=== PATIENT | male | born 1935 | race Caucasian/White ===

== ENCOUNTER → 2016-10-10 | Outpatient (CLI) | payer MEDICARE, OTHER ==
[2016-10-10 12:25] LABS: Appearance,Urine Clear (Clear); Bilirubin,Urine Negative (Negative); Glucose,Urine (UA) Negative (Negative); Ketones,Urine Negative (Negative); Leukocyte Esterase,Urine Negative (Negative); Nitrite,Urine Negative (Negative); Protein,Urine Trace (Negative); Specific Gravity,Urine 1.007 (1.001-1.035); UA Billing (MACRO vs. MICRO) CHEM; Urobilinogen,Urine <2.0 mg/dL (<2.0)
[2016-10-10 12:36] LABS: Aty Lym Flag Moderate; CH 31.4; CHCM 33.6; HCT 45.8 % (39.0-53.0); HDW 2.64; HGB 15.2 gm/dL (13.0-17.5); MCH 31.2 pg (25.0-35.0); MCHC 33.2 g/dL (31.0-37.0); MCV 93.9 fL (80.0-100.0); Mean Platelet Volume 7.8; RBC 4.88 m/uL (4.30-5.90); RDW 13.6 % (11.5-15.5); WBC 5.7 k/uL (3.8-10.6); WBC (Perox) 5.92
[2016-10-10 12:40] LABS: Magnesium 1.8 mg/dL (1.6-2.3); Phosphorous 3.7 mg/dL (2.5-4.5); Uric Acid 8.3 mg/dL (3.5-8.5)
[2016-10-10 12:49] LABS: % Iron Saturation 24.7 % (20-50)
[2016-10-10 14:20] LABS: Add Differential Manual Differential
[2016-10-10 14:24] LABS: Nucleated Red Blood Cells 0 /100 WBC (0-0); Total Cells Counted 100
== END | disposition home or self-care (01) ==
LOC: LABWHC1 11:39
PROVIDERS: ATTEND Internal Medicine Nephrology
DX: N18.3 Chronic kidney disease, stage 3 (moderate) (principal); D64.9 Anemia, unspecified; E55.9 Vitamin D deficiency, unspecified; E21.3 Hyperparathyroidism, unspecified
CPT/HCPCS: 36415; 81003; 82728; 83540; 83550; 83735; 83970; 84100; 84550; 85025

== ENCOUNTER → 2017-03-19 | Outpatient (CLI) | payer MEDICARE, OTHER ==
[2017-03-19 09:12] LABS: Basophils # (A) 0.1 k/uL (0-0.2); Basophils % (A) 1 %; CH 32.1; CHCM 34.5; Eosinophils # (A) 0.2 k/uL (0-0.7); Eosinophils % (A) 2 %; HCT 44.8 % (39.0-53.0); HDW 2.56; HGB 14.6 gm/dL (13.0-17.5); Luc % (Auto) 4; Lymphocytes # (A) 1.4 k/uL (1.0-4.8); Lymphocytes % (A) 19 %; MCH 30.5 pg (25.0-35.0); MCHC 32.7 g/dL (31.0-37.0); MCV 93.5 fL (80.0-100.0); Mean Platelet Volume 7.9; Monocytes # (A) 0.4 k/uL (0-1.0); Monocytes % (A) 6 %; Neutrophils # (A) 5.3 k/uL (1.3-7.7); Neutrophils % (A) 69 %; RBC 4.79 m/uL (4.30-5.90); WBC 7.6 k/uL (3.8-10.6); WBC (Perox) 8.17
[2017-03-19 09:14] LABS: Amorphous Sediment,Urine Rare /hpf; Appearance,Urine Clear (Clear); Bacteria,Urine Rare /hpf; Bilirubin,Urine Negative (Negative); Glucose,Urine (UA) Negative (Negative); Ketones,Urine Negative (Negative); Leukocyte Esterase,Urine Small (Negative); Nitrite,Urine Negative (Negative); PH, Urine 5.5 (5.0-8.0); Particle Count 578; Protein,Urine 1+ (Negative); RBC,Urine 4 /hpf (0-5); Specific Gravity,Urine 1.012 (1.001-1.035); UA Billing (MACRO vs. MICRO) MICRO; Urobilinogen,Urine <2.0 mg/dL (<2.0); WBC,Urine 10 /hpf (0-5)
[2017-03-19 11:22] LABS: Anion Gap 14 mmol/L; Blood Urea Nitrogen 29 mg/dL (9-20); Calcium 9.1 mg/dL (8.4-10.2); Carbon Dioxide 25 mmol/L (22-30); Chloride 102 mmol/L (98-107); Glucose 184 mg/dL (74-99); Iron 125 ug/dL (49-181); Magnesium 1.8 mg/dL (1.6-2.3); Non-African American GFR(MDRD) 53 (>60 ml/min/1.73 sqM); Phosphorous 3.6 mg/dL (2.5-4.5); Potassium 4.1 mmol/L (3.5-5.1); Sodium 141 mmol/L (137-145); Uric Acid 8.1 mg/dL (3.5-8.5)
[2017-03-19 11:32] LABS: % Iron Saturation 48.1 % (20-50); Total Iron Binding Capacity 260 ug/dL (261-462)
== END | disposition home or self-care (01) ==
LOC: LABWHC1 08:16
PROVIDERS: ATTEND Nurse Practitioner Family
DX: D64.9 Anemia, unspecified (principal); E55.9 Vitamin D deficiency, unspecified; N18.3 Chronic kidney disease, stage 3 (moderate); N25.81 Secondary hyperparathyroidism of renal origin; N39.0 Urinary tract infection, site not specified; M10.9 Gout, unspecified
CPT/HCPCS: 36415; 80048; 81001; 82306; 82728; 83540; 83550; 83735; 83970; 84100; 84550; 85025

== ENCOUNTER → 2018-03-29 | Outpatient (CLI) | payer MEDICARE, OTHER ==
[2018-03-29 15:39] LABS: Calcium 8.9 mg/dL (8.4-10.2)
== END | disposition home or self-care (01) ==
LOC: LABWHC1 14:54
PROVIDERS: ATTEND Internal Medicine Nephrology
DX: N18.3 Chronic kidney disease, stage 3 (moderate) (principal)
CPT/HCPCS: 36415; 80048

== ENCOUNTER → 2018-05-23 | Outpatient (CLI) | payer MEDICARE, OTHER ==
--- NOTE | 2018-05-23 23:55 | MR ---
EXAMINATION TYPE: MR knee RT wo con DATE OF EXAM: 05/23/2018 COMPARISON: None HISTORY: Right knee pain and swelling for several months, no known trauma TECHNIQUE: Multiplanar, multisequence imaging of the right knee is performed without IV contrast. FINDINGS: The anterior and posterior cruciate ligaments are intact. There is mild knee joint effusion. There is 4.5 x 2 cm popliteal cyst. There is horizontal tear of the posterior horn medial meniscus extending to the inferior surface. The re is mild degenerative thinning of the anterior horn of the lateral meniscus. The medial collateral ligament is intact. There is some thinning and mild increased signal in the lateral collateral ligame nt. There is a 2 cm area of edema in the subchondral medial tibial condyle. There is probably a 1 mm depressed fracture of the lateral tibial condyle. There is subcutaneous edema around the knee joint. IMPRESSION: There is a moderate 2 cml area of bone bruise in the lateral tibial condyle. There is subtle deformit y of the articular surface of the lateral tibial condyle suggestive of a nondisplaced plateau fractur e. Partial tear of the lateral collateral ligament. Knee joint effusion with popliteal cyst. There is tear of the posterior horn of the medial meniscus and anterior horn of the lateral meniscus.
== END | disposition home or self-care (01) ==
LOC: RADMRIMAIN 20:36
PROVIDERS: ATTEND Family Medicine
DX: S83.281A Other tear of lateral meniscus, current injury, right knee, initial encounter (principal); S83.241A Other tear of medial meniscus, current injury, right knee, initial encounter; S80.11XA Contusion of right lower leg, initial encounter; S83.421A Sprain of lateral collateral ligament of right knee, initial encounter; M71.21 Synovial cyst of popliteal space [Baker], right knee

== ENCOUNTER → 2018-12-24 | Outpatient (CLI) | payer MEDICARE, OTHER ==
[2018-12-24 16:25] LABS: Albumin 4.4 g/dL (3.80-4.90); Calcium 9.2 mg/dL (8.7-10.3); Globulin 2.2 g/dL (1.6-3.3); LDL Cholesterol,Calculated 85.6 mg/dL (0.0-131.0); Total Bilirubin 0.3 mg/dL (0.2-1.2); Total Protein 6.6 g/dL (6.2-8.2); VLDL Calculation 57.4 mg/dL (5.00-40.00)
== END ==
LOC: LABWHC1 08:35
PROVIDERS: ATTEND Internal Medicine
DX: E11.65 Type 2 diabetes mellitus with hyperglycemia (principal)
CPT/HCPCS: 36415; 80053; 80061; 82043; 82570; 83036

== ENCOUNTER 2019-02-01 12:47 | Emergency (ER) | payer MEDICARE, OTHER ==
[2019-02-01 12:50] VITALS: TEMP 98.3
[2019-02-01] MEDS ORDERED: SODIUM CHLORIDE 0.9% 500 ML 500 ML IV STA (13:15)
[2019-02-01] MEDS ORDERED: IPRATROPIUM-ALBUTEROL 3 ML NEB INHALATION STA (13:16)
--- NOTE | 2019-02-01 13:49 | ED ---
General Adult HPI - General Source: patient, RN notes reviewed Mode of arrival: ambulatory Limitations: no limitations <Duglas Wade - Last Filed: 02/01/19 15:49> <Juan Duffy - Last Filed: 02/02/19 11:35> - General Chief complaint: Upper Respiratory Infection Stated complaint: COLD SYMPTOMS, CONGESTION - History of Present Illness Initial comments: 83-year-old male with a past medical history of hyperlipidemia, hypertension, arthritis, diabetes mellitus presents to the emergency department for a chief complaint of cough and congestion 3 days. Patient states he has had a dry cough for the past several days that did turning to congestion. Patient states it is making him tired and his blood sugar higher. Patient denies fevers or chills. Denies shortness of breath or chest pain. Patient denies productive cough. Patient denies history of COPD however does admit to a [id number] smoking history. Patient is no longer a current smoker.Patient has no other complaints at this time including shortness of breath, chest pain, abdominal pain, nausea or vomiting, headache, or visual changes. (Duglas Wade) - Related Data Home Medications Medication Instructions Recorded Confirmed Clopidogrel [Plavix] 75 mg PO DAILY 06/09/14 10/26/15 Ergocalciferol [Vitamin D2 50,000 unit PO Q7D 06/09/14 10/26/15 (DRISDOL)] Gluc HCl/Joel/Mv/Min Aa/Hb 162 1 each PO BID 06/09/14 10/26/15 [Glucosamine-Chondroitin Caplet] Insulin Lispro Protamin/Lispro 78 unit SQ BID 06/09/14 10/26/15 [humaLOG Mix 75-25 Kwikpen] Lisinopril [Zestril] 20 mg PO BID 06/09/14 10/26/15 Magnesium Oxide [Mag-Ox] 500 mg PO DAILY 06/09/14 10/26/15 Multivitamin [Men's Multi-Vitamin] 1 each PO DAILY 06/09/14 10/26/15 [place]-3 Acid Ethyl Esters [Lovaza] 2 gm PO BID 06/09/14 10/26/15 Simvastatin [Zocor] 40 mg PO HS 06/09/14 10/26/15 hydrALAZINE HCL [Apresoline] 100 mg PO TID 06/09/14 10/26/15 sitaGLIPtin [Januvia] 50 mg PO DAILY 06/09/14 10/26/15 Previous Rx's Medication Instructions Recorded Verapamil Sr [Isoptin Sr] 180 mg PO DAILY #30 tablet.er 06/12/14 Sulfamethox-Tmp 800-160Mg [Bactrim 1 each PO Q12HR #14 tab 10/26/15 DS 800-160 mg] Albuterol Inhaler [Ventolin Hfa 1 - 2 puff INHALATION Q6HR PRN #1 02/01/19 Inhaler] inhaler Azithromycin [Zithromax Z-pack] 250 mg PO DIRECTED #6 tab 02/01/19 Erythromycin Ophth Oint [Romycin 1 applic BOTH EYES QID 7 Days gm 02/01/19 Ophth Oint] predniSONE 50 mg PO DAILY #5 tablet 02/01/19 Allergies Allergy/AdvReac Type Severity Reaction Status Date / Time insulin glargine Allergy Unknown Verified 02/01/19 12:51 [From Lantus U-100 Insulin] Latex, Natural Rubber Allergy Unknown Verified 02/01/19 12:51 Review of Systems ROS Other: All systems not noted in ROS Statement are negative. <Duglas Wade P - Last Filed: 02/01/19 15:49> ROS Other: All systems not noted in ROS Statement are negative. <Juan Duffy - Last Filed: 02/02/19 11:35> ROS Statement: Those systems with pertinent positive or pertinent negative responses have been documented in the HPI. Past Medical History Past Medical History: Cancer, Diabetes Mellitus, Hearing Disorder / Deafness, Hyperlipidemia, Hypertension, Prostate Disorder Additional Past Medical History / Comment(s): DOUBLE VISION 1 YEAR AGO- RESOLVED , ARTHRITIS History of Any Multi-Drug Resistant Organisms: None Reported Past Surgical History: Prostate Surgery, Tonsillectomy Additional Past Surgical History / Comment(s): prostate, skin ca Past Anesthesia/Blood Transfusion Reactions: No Reported Reaction Past Psychological History: No Psychological Hx Reported Smoking Status: Former smoker Past Alcohol Use History: None Reported Past Drug Use History: None Reported - Past Family History Father Additional Family Medical History / Comment(s): IN HIS 80'S HEART FAILURE Mother Additional Family Medical History / Comment(s): IN HER EARLY 80'S- UNK CAUSE <Duglas Wade P - Last Filed: 02/01/19 15:49> General Exam Limitations: no limitations General appearance: alert, in no apparent distress Head exam: Present: atraumatic, normocephalic, normal inspection Eye exam: Present: normal appearance, PERRL, EOMI. Absent: scleral icterus, c onjunctival injection, periorbital swelling ENT exam: Present: normal exam, normal oropharynx, mucous membranes moist, TM's normal bilaterally, normal external ear exam Neck exam: Present: normal inspection, full ROM. Absent: tenderness, meningismus, lymphadenopathy Respiratory exam: Present: normal lung sounds bilaterally. Absent: respiratory distress, wheezes, rales, rhonchi, stridor Cardiovascular Exam: Present: regular rate, normal rhythm, normal heart sounds. Absent: systolic murmur, diastolic murmur, rubs, gallop, clicks GI/Abdominal exam: Present: soft, normal bowel sounds. Absent: distended, tenderness, guarding, rebound, rigid Neurological exam: Present: alert, oriented X3, CN II-XII intact Psychiatric exam: Present: normal affect, normal mood <Duglas Wade P - Last Filed: 02/01/19 15:49> Course Vital Signs 02/01/19 02/01/19 02/01/19 12:48 13:41 13:51 Temperature 98.3 F Pulse Rate 72 72 75 Respiratory 18 Rate Blood Pressure 156/66 O2 Sat by Pulse 97 Oximetry 02/01/19 02/01/19 02/01/19 14:34 15:00 16:35 Temperature 98.3 F Pulse Rate 68 67 61 Respiratory 17 18 18 Rate Blood Pressure 169/76 168/76 155/75 O2 Sat by Pulse 97 95 95 Oximetry Medical Decision Making - Lab Data Result diagrams: 02/01/19 14:24 02/01/19 14:24 <Duglas Wade P - Last Filed: 02/01/19 15:49> - Lab Data Result diagrams: 02/01/19 14:24 02/01/19 14:24 <Juan Duffy - Last Filed: 02/02/19 11:35> - Medical Decision Making 83-year-old male with a past medical history of diabetes, hyperlipidemia, hypertension, prostate disorder presents to the emergency department for a chief complaint of cough. Patient has had sinus congestion with a cough for the past several days. A second shortness of breath. No chest pain. Patient is well- appearing on exam although does appear to have nasal congestion. He does also appear to have serous bilateral eye drainage. Vitals are stable, patient is 97% on room air with a pulse rate of 72. Patient is afebrile. CBC does show a white count of 12.7, likely reactive in nature CMP shows a creatinine of 1.61 which is not significant elevated above patient's baseline however he was given a liter of fluids. Influenza is negative. Chest x-ray shows no active cardiopulmonary disease. Patient does not have a history of COPD however does have a [id number] smoking history. Discussed options of patient and at this time patient will be treated outpatient with antibiotics and steroids. However discussed strict return parameters including returning tomorrow or the next a few is not feeling better. Discussed following up with primary care as well. (Duglas Wade) Patient presenting with cough and URI symptoms. I Did evaluate this patient, well-appearing with stable vitals. Patient was given strict return parameters with any worsening or changing symptoms. (Juan Duffy) - Lab Data Lab Results 02/01/19 02/01/19 02/01/19 Range/Units 13:35 14:24 14:24 WBC 12.7 H (3.8-10.6) k/uL RBC 4.41 (4.30-5.90) m/uL Hgb 13.9 (13.0-17.5) gm/dL Hct 41.5 (39.0-53.0) % MCV 94.2 (80.0-100.0) fL MCH 31.4 (25.0-35.0) pg MCHC 33.4 (31.0-37.0) g/dL RDW 14.4 (11.5-15.5) % Plt Count 250 (150-450) k/uL Neutrophils % 75 % Lymphocytes % 12 % Monocytes % 8 % Eosinophils % 1 % Basophils % 0 % Neutrophils # 9.5 H (1.3-7.7) k/uL Lymphocytes # 1.5 (1.0-4.8) k/uL Monocytes # 1.0 (0-1.0) k/uL Eosinophils # 0.1 (0-0.7) k/uL Basophils # 0.0 (0-0.2) k/uL Sodium 139 (137-145) mmol/L Potassium 4.6 (3.5-5.1) mmol/L Chloride 100 (98-107) mmol/L Carbon Dioxide 26 (22-30) mmol/L Anion Gap 13 mmol/L BUN 32 H (9-20) mg/dL Creatinine 1.61 H (0.66-1.25) mg/dL Est GFR (CKD-EPI)AfAm 46 (>60 ml/min/1.73 sqM) Est GFR (CKD-EPI)NonAf 39 (>60 ml/min/1.73 sqM) Glucose 158 H (74-99) mg/dL Calcium 9.7 (8.4-10.2) mg/dL Total Bilirubin 0.9 (0.2-1.3) mg/dL AST 28 (17-59) U/L ALT 20 L (21-72) U/L Alkaline Phosphatase 70 (38-126) U/L Total Protein 7.7 (6.3-8.2) g/dL Albumin 4.5 (3.5-5.0) g/dL Influenza Type A RNA Not Detected (Not Detectd) Influenza Type B (PCR) Not Detected (Not Detectd) Disposition Is patient prescribed a controlled substance at d/c from ED?: No Time of Disposition: 15:50 <Duglas Wade P - Last Filed: 02/01/19 15:49> <Juan Duffy - Last Filed: 02/02/19 11:35> Clinical Impression: Cough, Upper respiratory infection Disposition: HOME SELF-CARE Condition: Good Instructions (If sedation given, give patient instructions): Upper Respiratory Infection (ED), Acute Cough (ED) Additional Instructions: Please take prescriptions as directed. Follow-up with primary care in 1-2 days. If you have worsening symptoms then return here to the emergency department. Prescriptions: predniSONE 50 mg PO DAILY #5 tablet Erythromycin Ophth Oint [Romycin Ophth Oint] 1 applic BOTH EYES QID 7 Days gm Albuterol Inhaler [Ventolin Hfa Inhaler] 1 - 2 puff INHALATION Q6HR PRN #1 inhaler PRN Reason: Shortness Of Breath Azithromycin [Zithromax Z-pack] 250 mg PO DIRECTED #6 tab Referrals: Guille Ruggiero DO [Primary Care Provider] - 1-2 days
[2019-02-01 14:51] LABS: Basophils % (A) 0 %; Eosinophils # (A) 0.1 k/uL (0-0.7); Eosinophils % (A) 1 %; HCT 41.5 % (39.0-53.0); HGB 13.9 gm/dL (13.0-17.5); Lymphocytes # (A) 1.5 k/uL (1.0-4.8); Lymphocytes % (A) 12 %; MCH 31.4 pg (25.0-35.0); MCHC 33.4 g/dL (31.0-37.0); MCV 94.2 fL (80.0-100.0); Mean Platelet Volume 8.8; Monocytes % (A) 8 %; Neutrophils # (A) 9.5 k/uL (1.3-7.7); Neutrophils % (A) 75 %; Platelet Count 250 k/uL (150-450); RBC 4.41 m/uL (4.30-5.90); RDW 14.4 % (11.5-15.5); WBC 12.7 k/uL (3.8-10.6)
[2019-02-01 14:53] LABS: Albumin 4.5 g/dL (3.5-5.0); Calcium 9.7 mg/dL (8.4-10.2); Total Bilirubin 0.9 mg/dL (0.2-1.3); Total Protein 7.7 g/dL (6.3-8.2)
[2019-02-01 14:54] LABS: Potassium 4.6 mmol/L (3.5-5.1)
--- NOTE | 2019-02-01 15:03 | XR ---
EXAMINATION TYPE: XR chest 2V DATE OF EXAM: 02/01/2019 COMPARISON: 06/09/2014 HISTORY: Cough TECHNIQUE: Frontal and lateral views of the chest are obtained. FINDINGS: Heart and mediastinum are normal. Lungs are clear of infiltrate. There is hiatal hernia. T here are chest leads. There is spurring in the thoracic spine. IMPRESSION: No active cardiopulmonary disease. Hiatal hernia appears new compared to old exam.
[2019-02-01 15:05] VITALS: RESP 18
[2019-02-01] MEDS ORDERED: cefTRIAXone IN SWFI 1,000 MG/10 ML SYRINGE IVP STA (15:47)
[2019-02-01] MEDS ORDERED: methylPREDNISolone SOD SUCCI 125 MG/2 ML VIAL IV STA (15:47)
[2019-02-01 16:56] VITALS: BP 155/75; PULSE 61
== END 2019-02-01 16:35 | disposition home or self-care (01) ==
LOC: EC 12:47
DX: J06.9 Acute upper respiratory infection, unspecified (principal); E11.9 Type 2 diabetes mellitus without complications; H91.90 Unspecified hearing loss, unspecified ear; E78.5 Hyperlipidemia, unspecified; I10 Essential (primary) hypertension; Z85.828 Personal history of other malignant neoplasm of skin; Z85.46 Personal history of malignant neoplasm of prostate; Z87.891 Personal history of nicotine dependence; Z79.01 Long term (current) use of anticoagulants; Z79.4 Long term (current) use of insulin; Z79.899 Other long term (current) drug therapy; Z88.8 Allergy status to other drugs, medicaments and biological substances; Z91.040 Latex allergy status; Z98.890 Other specified postprocedural states
CPT/HCPCS: 36415; 94640; 80053; 85025; 87040; 87502; 71046; 99284; 96374; 96375; 96361; J2930; J0696

== ENCOUNTER → 2019-02-17 | Outpatient (CLI) | payer MEDICARE, OTHER ==
--- NOTE | 2019-02-17 11:58 | US ---
EXAMINATION TYPE: US kidneys/renal and bladder DATE OF EXAM: 02/17/2019 COMPARISON: US 2012 CLINICAL HISTORY: N18.3 Chronic kidney disease, stage 3 (moderate). CKD stage 3 EXAM MEASUREMENTS: Right Kidney: 12.3 x 5.4 x 5.4 cm Left Kidney: 11.0 x 5.1 x 4.8 cm Right Kidney: no hydronephrosis, nephrolithiasis or masses seen Left Kidney: no hydronephrosis or nephrolithiasis. There is a 2.9 x 3.3 x 2.5cm cyst inferior pole Bladder: wnl Bilateral Jets seen: yes IMPRESSION: 3.3 cm simple appearing left renal cyst.
== END | disposition home or self-care (01) ==
LOC: RADUSWWP 10:42
PROVIDERS: ATTEND Internal Medicine Nephrology
DX: N28.1 Cyst of kidney, acquired (principal); N18.3 Chronic kidney disease, stage 3 (moderate)
CPT/HCPCS: 76770

== ENCOUNTER → 2019-10-29 | Outpatient (CLI) | payer MEDICARE, OTHER ==
--- NOTE | 2019-10-29 10:07 | US ---
EXAMINATION TYPE: US abdomen complete DATE OF EXAM: 10/29/2019 COMPARISON: NONE CLINICAL HISTORY: K80.20 calculus of gallbladder w/o cholecystitis. history of cholelithiasis EXAM MEASUREMENTS: Liver Length: 19.2cm Gallbladder Wall: 3 mm CBD: 0.4 cm Spleen: 10 cm Right Kidney: 12.6 cm Left Kidney: 9.7 cm There is no ascites Pancreas: Tail obscured by overlying bowel gas Liver: enlarged, echotexture is coarse Gallbladder: multiple stones dependent portion Evidence for sonographic Thompson's sign: no CBD: appears wnl Spleen: wnl Right Kidney: cystic area upper pole = 1.0 x 1.0cm Left Kidney: cystic area lateral = 3.7 x 3.1 x 3.4cm Upper IVC: wnl Abd Aorta: calcifications noted Cortical medullary differentiation is maintained. No hydronephrosis. IMPRESSION: Correlate for hepatic steatosis, there is hepatomegaly. Cholelithiasis. Simple cysts asso ciated with the kidneys.
== END | disposition home or self-care (01) ==
LOC: RADUSMAIN 08:51
PROVIDERS: ATTEND Family Medicine
DX: K80.20 Calculus of gallbladder without cholecystitis without obstruction (principal); N28.1 Cyst of kidney, acquired; R16.0 Hepatomegaly, not elsewhere classified
CPT/HCPCS: 76700

== ENCOUNTER 2020-05-16 10:23 | Emergency (ER) | payer MEDICARE, OTHER ==
[2020-05-16 10:31] VITALS: BP 158/93; PULSE 89; RESP 18; TEMP 97.9
--- NOTE | 2020-05-16 11:01 | ED ---
Skin/Abscess/FB HPI - General Chief complaint: Skin/Abscess/Foreign Body Stated complaint: Shingles Time Seen by Provider: 05/16/20 10:32 Source: patient Mode of arrival: ambulatory Limitations: no limitations - History of Present Illness Initial comments: Patient is an 84-year-old male presenting to the emergency Department with complaints of a rash on his abdomen and back 2 days. Patient states he has been having some mild discomfort with the rash as well. He states they looked up on the Internet and he believes it is shingles. He denies any fever, chills, nausea, vomiting, chest pain, shortness of breath. He states he has never had shingles before. He has no further complaints at this time. Upon arrival to the ER, his vital signs are stable. - Related Data Home Medications Medication Instructions Recorded Confirmed Clopidogrel [Plavix] 75 mg PO DAILY 06/09/14 10/26/15 Ergocalciferol [Vitamin D2 50,000 unit PO Q7D 06/09/14 10/26/15 (DRISDOL)] Gluc HCl/Joel/Mv/Min Aa/Hb 162 1 each PO BID 06/09/14 10/26/15 [Glucosamine-Chondroitin Caplet] Insulin Lispro Protamin/Lispro 78 unit SQ BID 06/09/14 10/26/15 [humaLOG Mix 75-25 Kwikpen] Magnesium Oxide [Mag-Ox] 500 mg PO DAILY 06/09/14 10/26/15 Multivitamin [Men's Multi-Vitamin] 1 each PO DAILY 06/09/14 10/26/15 [place]-3 Acid Ethyl Esters [Lovaza] 2 gm PO BID 06/09/14 10/26/15 Simvastatin [Zocor] 40 mg PO HS 06/09/14 10/26/15 hydrALAZINE HCL [Apresoline] 100 mg PO TID 06/09/14 10/26/15 lisinopriL [Zestril] 20 mg PO BID 06/09/14 10/26/15 sitaGLIPtin [Januvia] 50 mg PO DAILY 06/09/14 10/26/15 Previous Rx's Medication Instructions Recorded Verapamil Sr [Isoptin Sr] 180 mg PO DAILY #30 tablet.er 06/12/14 Sulfamethox-Tmp 800-160Mg [Bactrim 1 each PO Q12HR #14 tab 10/26/15 DS 800-160 mg] Albuterol Inhaler (Mhu) [Ventolin 1 - 2 puff INHALATION Q6HR PRN #1 02/01/19 Hfa Inhaler (Mhu)] inhaler Azithromycin [Zithromax Z-pack] 250 mg PO DIRECTED #6 tab 02/01/19 Erythromycin Ophth Oint [Romycin 1 applic BOTH EYES QID 7 Days gm 02/01/19 Ophth Oint] predniSONE 50 mg PO DAILY #5 tablet 02/01/19 Lidocaine 5% Patch [Lidoderm 5% 1 patch TOPICAL DAILY #5 patch 05/16/20 Patch] valACYclovir HCL [Valtrex] 1,000 mg PO Q8HR 7 Days #21 tab 05/16/20 Allergies Allergy/AdvReac Type Severity Reaction Status Date / Time insulin glargine Allergy Unknown Verified 05/16/20 10:31 [From Lantus U-100 Insulin] Latex, Natural Rubber Allergy Unknown Verified 05/16/20 10:31 Review of Systems ROS Statement: Those systems with pertinent positive or pertinent negative responses have been documented in the HPI. ROS Other: All systems not noted in ROS Statement are negative. Past Medical History Past Medical History: Cancer, Diabetes Mellitus, Hearing Disorder / Deafness, Hyperlipidemia, Hypertension, Osteoarthritis (OA), Prostate Disorder, Renal Disease Additional Past Medical History / Comment(s): DOUBLE VISION 1 YEAR AGO- RESOLVED , ARTHRITIS History of Any Multi-Drug Resistant Organisms: None Reported Past Surgical History: Prostate Surgery, Tonsillectomy Additional Past Surgical History / Comment(s): prostate, skin ca, cataract Past Anesthesia/Blood Transfusion Reactions: No Reported Reaction Past Psychological History: No Psychological Hx Reported Smoking Status: Former smoker Past Alcohol Use History: None Reported Past Drug Use History: None Reported - Past Family History Father Additional Family Medical History / Comment(s): IN HIS 80'S HEART FAILURE Mother Additional Family Medical History / Comment(s): IN HER EARLY 80'S- UNK CAUSE General Exam - General Exam Comments Initial Comments: GENERAL: Patient is well-developed and well-nourished. Patient is nontoxic and in no acute distress. HEAD: Atraumatic, normocephalic. EYES: Pupils equal round and reactive to light, extraocular movements intact, sclera anicteric, conjunctiva are normal. Eyelids were unremarkable. ENT: TMs normal, nares patent, oropharynx clear without exudates. Moist mucous membranes. NECK: Normal range of motion, supple without lymphadenopathy or JVD. LUNGS: Unlabored respirations. Breath sounds clear to auscultation bilaterally and equal. No wheezes rales or rhonchi. HEART: Regular rate and rhythm without murmurs, rubs or gallops. ABDOMEN: Soft, nontender, normoactive bowel sounds. No guarding, no rebound. No masses appreciated. : Deferred MUSCULOSKELETAL: Normal extremities with adequate strength and normal range of motion, no pitting or edema. No clubbing or cyanosis. NEUROLOGICAL: Patient is alert and oriented x 3. Motor and sensory are also intact. Normal speech, normal gait. PSYCH: Normal mood, normal affect. SKIN: Warm, Dry, normal turgor. Patient has an erythematous macule, papule rash with also vesicles present consistent with shingles. It is mostly along the T8, T9 dermatome in the right posterior back wrapping around to the right abdomen. There is no signs of infection at this time. Limitations: no limitations Course Vital Signs 05/16/20 10:27 Temperature 97.9 F Pulse Rate 89 Respiratory 18 Rate Blood Pressure 158/93 O2 Sat by Pulse 98 Oximetry Medical Decision Making - Medical Decision Making Patient is an 84-year-old male presenting with shingles along the T8-T9 dermatome on the right side, from his back that wraps around to his front of the abdomen. His vital signs are stable. There are no signs of infection at this time. Patient will be started on valacyclovir as well as lidocaine patches. He can also take Tylenol for discomfort. He is stable for discharge. He will follow up with his PCP in 1-3 days. They are in agreement with this plan of care. Return parameters were discussed with the patient he verbalizes under standing. Case discussed with Dr. Duffy. Disposition Clinical Impression: Herpes zoster dermatitis Disposition: HOME SELF-CARE Condition: Stable Instructions (If sedation given, give patient instructions): Shingles (ED) Additional Instructions: Please return to the Emergency Department if symptoms worsen or any other concerns. Take medication as prescribed. May also take Tylenol for pain. Follow-up with PCP in 1-3 days. Prescriptions: Lidocaine 5% Patch [Lidoderm 5% Patch] 1 patch TOPICAL DAILY #5 patch valACYclovir HCL [Valtrex] 1,000 mg PO Q8HR 7 Days #21 tab Is patient prescribed a controlled substance at d/c from ED?: No Referrals: Guille Ruggiero DO [Primary Care Provider] - 1-2 days
== END 2020-05-16 11:16 | disposition home or self-care (01) ==
LOC: EC 10:23
DX: B02.9 Zoster without complications (principal); L30.9 Dermatitis, unspecified; I10 Essential (primary) hypertension; E11.9 Type 2 diabetes mellitus without complications; H91.90 Unspecified hearing loss, unspecified ear; E78.5 Hyperlipidemia, unspecified; N28.9 Disorder of kidney and ureter, unspecified; Z79.84 Long term (current) use of oral hypoglycemic drugs; Z79.02 Long term (current) use of antithrombotics/antiplatelets; Z79.4 Long term (current) use of insulin; Z79.899 Other long term (current) drug therapy; Z91.040 Latex allergy status; Z88.8 Allergy status to other drugs, medicaments and biological substances; Z85.828 Personal history of other malignant neoplasm of skin; Z87.891 Personal history of nicotine dependence
CPT/HCPCS: 99282

== ENCOUNTER 2020-06-05 18:14 | Emergency (ER) | payer MEDICARE, OTHER ==
[2020-06-05 18:20] VITALS: RESP 18; TEMP 97.7
--- NOTE | 2020-06-05 18:42 | ED ---
General Adult HPI <Juan Coelho - Last Filed: 06/05/20 19:01> - General Source: patient Mode of arrival: ambulatory <DarrellMark - Last Filed: 06/05/20 19:18> - General Chief complaint: Skin/Abscess/Foreign Body Stated complaint: shingles Time Seen by Provider: 06/05/20 18:27 - History of Present Illness Initial comments: Patient is an 84-year-old male presenting to emergency department with a chief complaint of symptoms. Of shingles. states the patient was recently emergency department and started on Valtrex. She states they went to their primary care physician who decreased his dose from 3 times a day to twice a day. states he had no pain but now since yesterday is developed pain at the area affected by she was. states the lesions is otherwise healing well and now there is scaling. (Mark Ramírez) - Related Data Home Medications Medication Instructions Recorded Confirmed Clopidogrel [Plavix] 75 mg PO DAILY 06/09/14 10/26/15 Ergocalciferol [Vitamin D2 50,000 unit PO Q7D 06/09/14 10/26/15 (DRISDOL)] Gluc HCl/Joel/Mv/Min Aa/Hb 162 1 each PO BID 06/09/14 10/26/15 [Glucosamine-Chondroitin Caplet] Insulin Lispro Protamin/Lispro 78 unit SQ BID 06/09/14 10/26/15 [humaLOG Mix 75-25 Kwikpen] Magnesium Oxide [Mag-Ox] 500 mg PO DAILY 06/09/14 10/26/15 Multivitamin [Men's Multi-Vitamin] 1 each PO DAILY 06/09/14 10/26/15 [place]-3 Acid Ethyl Esters [Lovaza] 2 gm PO BID 06/09/14 10/26/15 Simvastatin [Zocor] 40 mg PO HS 06/09/14 10/26/15 hydrALAZINE HCL [Apresoline] 100 mg PO TID 06/09/14 10/26/15 lisinopriL [Zestril] 20 mg PO BID 06/09/14 10/26/15 sitaGLIPtin [Januvia] 50 mg PO DAILY 06/09/14 10/26/15 Previous Rx's Medication Instructions Recorded Verapamil Sr [Isoptin Sr] 180 mg PO DAILY #30 tablet.er 06/12/14 Sulfamethox-Tmp 800-160Mg [Bactrim 1 each PO Q12HR #14 tab 10/26/15 DS 800-160 mg] Albuterol Inhaler (Mhu) [Ventolin 1 - 2 puff INHALATION Q6HR PRN #1 02/01/19 Hfa Inhaler (Mhu)] inhaler Azithromycin [Zithromax Z-pack] 250 mg PO DIRECTED #6 tab 02/01/19 Erythromycin Ophth Oint [Romycin 1 applic BOTH EYES QID 7 Days gm 02/01/19 Ophth Oint] predniSONE 50 mg PO DAILY #5 tablet 02/01/19 Lidocaine 5% Patch [Lidoderm 5% 1 patch TOPICAL DAILY #5 patch 05/16/20 Patch] valACYclovir HCL [Valtrex] 1,000 mg PO Q8HR 7 Days #21 tab 05/16/20 Gabapentin 300 mg PO BID PRN 7 Days #14 cap 06/05/20 Allergies Allergy/AdvReac Type Severity Reaction Status Date / Time insulin glargine Allergy Unknown Verified 06/05/20 18:16 [From Lantus U-100 Insulin] Latex, Natural Rubber Allergy Unknown Verified 06/05/20 18:16 Review of Systems ROS Other: All systems not noted in ROS Statement are negative. <Juan Coelho - Last Filed: 06/05/20 19:01> ROS Other: All systems not noted in ROS Statement are negative. <Mark Ramírez - Last Filed: 06/05/20 19:18> ROS Statement: Those systems with pertinent positive or pertinent negative responses have been documented in the HPI. Past Medical History Past Medical History: Cancer, Diabetes Mellitus, Hearing Disorder / Deafness, Hyperlipidemia, Hypertension, Osteoarthritis (OA), Prostate Disorder, Renal Disease Additional Past Medical History / Comment(s): DOUBLE VISION 1 YEAR AGO- RESOLVED , ARTHRITIS History of Any Multi-Drug Resistant Organisms: None Reported Past Surgical History: Prostate Surgery, Tonsillectomy Additional Past Surgical History / Comment(s): prostate, skin ca, cataract Past Anesthesia/Blood Transfusion Reactions: No Reported Reaction Past Psychological History: No Psychological Hx Reported Smoking Status: Former smoker Past Alcohol Use History: None Reported Past Drug Use History: None Reported - Past Family History Father Additional Family Medical History / Comment(s): IN HIS 80'S HEART FAILURE Mother Additional Family Medical History / Comment(s): IN HER EARLY 80'S- UNK CAUSE <Mark Ramírez - Last Filed: 06/05/20 19:18> General Exam Limitations: no limitations General appearance: alert, in no apparent distress Head exam: Present: atraumatic, normocephalic, normal inspection Eye exam: Present: normal appearance, PERRL, EOMI Pupils: Present: normal accommodation ENT exam: Present: normal exam, normal oropharynx, mucous membranes moist Neck exam: Present: normal inspection, full ROM. Absent: tenderness Respiratory exam: Present: normal lung sounds bilaterally. Absent: respiratory distress, wheezes, rales Cardiovascular Exam: Present: regular rate, normal rhythm, normal heart sounds GI/Abdominal exam: Present: soft, tenderness (Tenderness over the skin affected with shingles). Absent: distended, guarding Extremities exam: Present: normal inspection, full ROM. Absent: tenderness Back exam: Present: normal inspection, full ROM Neurological exam: Present: alert, oriented X3 Psychiatric exam: Present: normal affect, normal mood Skin exam: Present: warm, dry, intact, normal color, rash (Shingles along the mid abdomen and circumferential pattern to the back. There appeared to be scaly at this point.) <Mark Ramírez - Last Filed: 06/05/20 19:18> Course <Juan Coelho - Last Filed: 06/05/20 19:01> Vital Signs 06/05/20 18:17 Temperature 97.7 F Pulse Rate 75 Respiratory 18 Rate Blood Pressure 129/72 O2 Sat by Pulse 98 Oximetry - Reevaluation(s) Reevaluation #1: 06/05/20 19:01 PA supervision: I did personally evaluate this case patient did present with a history of shingles and still has pain over the effected area. He is healing up however per family. Patient will be discharged with appropriate pain medication. I do agree with the assessment and plan (Juan Coelho) Medical Decision Making <Mark Ramírez - Last Filed: 06/05/20 19:18> - Medical Decision Making Patient is a 84-year-old male presenting to emergency Department with chief complaint of shingles. On exam the shingles are healing well. This is also true according to the . Only concern is the patient has developing now. Patient will be started on gabapentin for pain. He also has a prescription for Lidoderm patches. I spoke with Filiberto, the inpatient pharmacist, who suggested a 300 mg dose twice a day is within normal limits based on his recent laboratory work. Patient and advised to follow-up with the primary care position. Strict return parameters were thoroughly discussed with patient and were understanding and agreeable. Case discussed with physician. (Mark Ramírez) Disposition <Juan Coelho - Last Filed: 06/05/20 19:01> Is patient prescribed a controlled substance at d/c from ED?: No Time of Disposition: 19:18 <Mark Ramírez - Last Filed: 06/05/20 19:18> Clinical Impression: Shingles rash Disposition: HOME SELF-CARE Condition: Stable Instructions (If sedation given, give patient instructions): Shingles (ED), Shingles Vaccine (ED) Additional Instructions: Taper prescription medication as directed. Follow-up with a primary care physician. Return to emergency department if symptoms worsen. Prescriptions: Gabapentin 300 mg PO BID PRN 7 Days #14 cap PRN Reason: Pain Referrals: Guille Ruggiero DO [Primary Care Provider] - 1-2 days
[2020-06-05] MEDS ORDERED: GABAPENTIN 100 MG CAP PO STA (19:03)
[2020-06-05 20:20] VITALS: BP 133/65; PULSE 78
== END 2020-06-05 20:17 | disposition home or self-care (01) ==
LOC: EC 18:14
DX: B02.9 Zoster without complications (principal); I10 Essential (primary) hypertension; E11.9 Type 2 diabetes mellitus without complications; E78.5 Hyperlipidemia, unspecified; H91.90 Unspecified hearing loss, unspecified ear; Z79.84 Long term (current) use of oral hypoglycemic drugs; Z79.899 Other long term (current) drug therapy; Z79.4 Long term (current) use of insulin; Z79.02 Long term (current) use of antithrombotics/antiplatelets; Z91.040 Latex allergy status; Z88.8 Allergy status to other drugs, medicaments and biological substances; Z85.828 Personal history of other malignant neoplasm of skin; Z85.46 Personal history of malignant neoplasm of prostate; Z87.891 Personal history of nicotine dependence
CPT/HCPCS: 99282

== ENCOUNTER → 2020-08-19 | Outpatient (CLI) | payer MEDICARE, OTHER ==
--- NOTE | 2020-08-19 15:29 | US ---
EXAMINATION TYPE: US kidneys/renal and bladder DATE OF EXAM: 08/19/2020 COMPARISON: US CLINICAL HISTORY: N18.3 stage 3 kidney disease. Renal disease EXAM MEASUREMENTS: Right Kidney: 12.1 x 5.4 x 5.2 cm Left Kidney: 10.7 x 5.3 x 4.2 cm Right Kidney: No evidence of hydro, cyst upper pole= 0.9 x 0.8 x 0.7 cm Left Kidney: No evidence of hydro, cyst lower pole= 3.9 x 3.0 x 4.1 cm, lesion is consistent with sim ple cyst Bladder: wnl Bilateral Jets seen: No There is no evidence for hydronephrosis at this point in time. No nephrolithiasis is seen. No chrissy s are identified. Cortical medullary differentiation is maintained. The urinary bladder is anechoic. IMPRESSION: Bilateral renal cysts.
== END | disposition home or self-care (01) ==
LOC: RADUSWWP 15:01
PROVIDERS: ATTEND Internal Medicine Nephrology
DX: N28.1 Cyst of kidney, acquired (principal)
CPT/HCPCS: 76770

== ENCOUNTER → 2020-10-27 | Outpatient (CLI) | payer MEDICARE, OTHER ==
--- NOTE | 2020-10-27 16:06 | CONS ---
CONSULTATION DATE OF SERVICE: 10/27/2020 This patient is an 84-year-old gentleman who has been evaluated in Sleep Center for possible obstructive sleep apnea-hypopnea syndrome. HISTORY OF PRESENT ILLNESS/SLEEP-WAKE EVALUATION: Patient's usual sleep schedule is from 9 or 10 p.m. until 6 or 7 a.m. No problems with falling asleep. According to his , he falls asleep very quickly. No TV in bedroom. He has not very loud snoring and he wakes up from sleep once with nocturia and dry mouth. During the day he has difficulties paying attention, falling asleep during the day. He has problems with concentration. [place] Sleepiness Scale increased to 15. No history of hypnagogic hallucinations, sleep paralysis or cataplexy. He may take naps up to 3 times a day and usually feels refreshed after naps. PAST MEDICAL HISTORY: Positive for hypertension, diabetes, hyperlipidemia, gout, history of diplopia, hearing problems. 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 MEDICATIONS: NovoLog, Trulicity, hydralazine 50 mg twice a day, lisinopril 10 mg twice a day, diltiazem 180 mg once a day, furosemide 40 mg once a day, clopidogrel 75 mg once a day, simvastatin 40 mg once a day, allopurinol 100 mg twice a day, finasteride 5 mg once a day. SOCIAL HISTORY: Negative for smoking or using alcohol. PHYSICAL EXAMINATION: GENERAL: A pleasant patient in no distress. VITAL SIGNS: BP 183/69, HR 67, RR 12, height 5 feet 5 inches, weight 171.6, temperature 98.1, oxygen saturation at room air 98%. BMI 29.2. HEENT: PERRLA, EOMI. Evaluation of oropharynx showed tongue protrudes midline. Low position of soft palate. Mallampati III to IV. NECK: Supple. No JVD. Thyroid is not palpable. Wide neck; 16-1/2 inches in circumference. LUNGS: Clear to percussion and to auscultation. Good air exchange. No wheezing or rhonchi. HEART: S1, S2 regular. No murmurs, gallops or rubs. ABDOMEN:Slightly obese. EXTREMITIES: One plus ankle edema. IMPRESSION: 1. Snoring, awakenings from sleep, low position of soft palate; possible obstructive sleep apnea-hypopnea syndrome. 2. Excessive daytime sleepiness. [place] Sleepiness Scale significantly increased to 15. 3. Obesity; body mass index 29.2. 4. Diabetes mellitus. 5. Hypertension. 6. History of episodes of diplopia. 7. Hyperlipidemia. 8. Gout. 9. Status post prostate surgery. 10.Status post tonsillectomy. PLAN: 1. Polysomnography for evaluation of patient's breathing during sleep. I discussed with the patient the possibility of a home sleep apnea test. He prefers to do the test in the sleep center. 2. CPAP/BiPAP titration if sleep study confirms obstructive sleep apnea-hypopnea syndrome. 3. Preferable position during sleep on the side. 4. No driving if patient feels any sleepiness. 5. I will see patient for follow up visit to explain results of testing and following plan. Thank you very much for referring this patient for consultation. Sincerely, Derek Merritt MD, PhD, FAASM Diplomat of [employer] [employer] Commercial Title Examiner of [facility] [place] MMODL / WOLFN: [id number] /
== END | disposition home or self-care (01) ==
LOC: SLEEP 14:11
PROVIDERS: ATTEND Internal Medicine
DX: G47.10 Hypersomnia, unspecified (principal); R06.83 Snoring; E11.9 Type 2 diabetes mellitus without complications; I10 Essential (primary) hypertension; E78.5 Hyperlipidemia, unspecified; M10.9 Gout, unspecified; E66.9 Obesity, unspecified; Z68.29 Body mass index [BMI] 29.0-29.9, adult; Z79.4 Long term (current) use of insulin; Z79.891 Long term (current) use of opiate analgesic; Z79.899 Other long term (current) drug therapy; Z98.890 Other specified postprocedural states; Z86.69 Personal history of other diseases of the nervous system and sense organs
CPT/HCPCS: 99211

== ENCOUNTER 2024-02-28 16:45 | Emergency (ER) | payer MEDICARE, OTHER ==
--- NOTE | 2024-02-28 16:49 | ED ---
General Adult HPI - General Stated complaint: Fall Time Seen by Provider: 02/28/24 16:46 - History of Present Illness Initial comments: Arnold is an 88-year-old male with a history of advanced dementia usually alert and oriented to self only. Patient is not supposed to be ambulatory. Patient stood up tried to walk fell forward and struck his head on a dresser. Patient continues to be alert and oriented x 1 and offer no meaningful history. Per the medical record patient is on Plavix. - Related Data Home Medications Medication Instructions Recorded Confirmed Clopidogrel [Plavix] 75 mg PO DAILY 06/09/14 10/26/15 Ergocalciferol [Vitamin D2 50,000 unit PO Q7D 06/09/14 10/26/15 (DRISDOL)] Gluc HCl/Joel/Mv/Min Aa/Hb 162 1 each PO BID 06/09/14 10/26/15 [Glucosamine-Chondroitin Caplet] Insulin Lispro Protamin/Lispro 78 unit SQ BID 06/09/14 10/26/15 [humaLOG MIX 75-25 Kwikpen] Magnesium Oxide [Mag-Ox] 500 mg PO DAILY 06/09/14 10/26/15 Multivitamin [Men's Multi-Vitamin] 1 each PO DAILY 06/09/14 10/26/15 [place]-3 Acid Ethyl Esters [Lovaza] 2 gm PO BID 06/09/14 10/26/15 Simvastatin [Zocor] 40 mg PO HS 06/09/14 10/26/15 hydrALAZINE HCL [Apresoline] 100 mg PO TID 06/09/14 10/26/15 lisinopriL [Zestril] 20 mg PO BID 06/09/14 10/26/15 sitaGLIPtin [Januvia] 50 mg PO DAILY 06/09/14 10/26/15 Previous Rx's Medication Instructions Recorded Verapamil Sr [Isoptin Sr] 180 mg PO DAILY #30 tablet.er 06/12/14 Sulfamethox-Tmp 800-160Mg [Bactrim 1 each PO Q12HR #14 tab 10/26/15 DS 800-160 mg] Albuterol Inhaler [Ventolin Hfa 1 - 2 puff INHALATION Q6HR PRN #1 02/01/19 Inhaler] inhaler Azithromycin [Zithromax Z-pack (6 250 mg PO DIRECTED #6 tab 02/01/19 tabs)] Erythromycin Ophth Oint [Romycin 1 applic BOTH EYES QID 7 Days gm 02/01/19 Ophth Oint] predniSONE 50 mg PO DAILY #5 tablet 02/01/19 Lidocaine 5% Patch [Lidoderm 5% 1 patch TOPICAL DAILY #5 patch 05/16/20 Patch] valACYclovir HCL [Valtrex] 1,000 mg PO Q8HR 7 Days #21 tab 05/16/20 Gabapentin 300 mg PO BID PRN 7 Days #14 cap 06/05/20 Allergies Allergy/AdvReac Type Severity Reaction Status Date / Time insulin glargine Allergy Unknown Verified 02/28/24 17:13 [From Lantus U-100 Insulin] Latex, Natural Rubber Allergy Unknown Verified 02/28/24 17:13 Review of Systems ROS Statement: Those systems with pertinent positive or pertinent negative responses have been documented in the HPI. ROS Other: All systems not noted in ROS Statement are negative. Past Medical History Past Medical History: Cancer, Diabetes Mellitus, Hearing Disorder / Deafness, Hyperlipidemia, Hypertension, Osteoarthritis (OA), Prostate Disorder, Renal Disease Additional Past Medical History / Comment(s): DOUBLE VISION 1 YEAR AGO- RESOLVED , ARTHRITIS History of Any Multi-Drug Resistant Organisms: None Reported Past Surgical History: Prostate Surgery, Tonsillectomy Additional Past Surgical History / Comment(s): prostate, skin ca, cataract Past Anesthesia/Blood Transfusion Reactions: No Reported Reaction Past Psychological History: No Psychological Hx Reported Smoking Status: Former smoker Past Alcohol Use History: None Reported Past Drug Use History: None Reported - Past Family History Father Additional Family Medical History / Comment(s): IN HIS 80'S HEART FAILURE Mother Additional Family Medical History / Comment(s): IN HER EARLY 80'S- UNK CAUSE General Exam - General Exam Comments Initial Comments: Physical Exam GENERAL: Patient is head is bandaged but he appears to be in no distress HENT: Hematoma mid forehead with abrasion no laceration or active bleeding EYES: PERRL, EOMI PULMONARY: Unlabored respirations. CARDIOVASCULAR: Warm and well perfused extremities ABDOMEN: Non-distended SKIN: Forehead abrasion as noted : Deferred NEUROLOGIC: Alert and oriented to self MUSCULOSKELETAL: Moving all extremities with no apparent injury PSYCHIATRIC: Unable to assess due to dementia Course Vital Signs 02/28/24 02/28/24 02/28/24 16:59 18:12 18:40 Temperature 97.9 F Pulse Rate 76 78 83 Respiratory 18 18 18 Rate Blood Pressure 153/72 166/75 172/74 O2 Sat by Pulse 97 97 97 Oximetry 02/28/24 19:12 Temperature 97.5 F L Pulse Rate 78 Respiratory 16 Rate Blood Pressure 164/78 O2 Sat by Pulse 97 Oximetry Medical Decision Making - Medical Decision Making Was pt. sent in by a medical professional or institution (, [facility]INT, OCCUPATIONAL THERAPIST, urgent care, hospital, or residential...) When possible be specific @ -Sent from residential Did you speak to anyone other than the patient for history (EMS, parent, family, police, friend...)? What history was obtained from this source @ -EMS, Did you review nursing and triage notes (agree or disagree)? Why? @ -I reviewed and agree with nursing and triage notes Were old charts reviewed (outside hosp., previous admission, EMS record, old EKG, old radiological studies, urgent care reports/EKG's, residential records)? Report findings @ -No old charts were reviewed Differential Diagnosis (chest pain, altered mental status, abdominal pain women, abdominal pain men, vaginal bleeding, weakness, fever, dyspnea, syncope, headache, dizziness, GI bleed, back pain, seizure, CVA, palpatations, mental health)? @ -Differential includes abrasion, scalp laceration, intracranial bleed, cervical spine sprain or fracture EKG interpreted by me (3pts min.). @ -As above X-rays interpreted by me (1pt min.). @ -None done CT interpreted by me (1pt min.). @ -CT of the head with no bleed but appears to have vasogenic edema, CT of the cervical spine with a dens fracture U/S interpreted by me (1pt. min.). @ -None done What testing was considered but not performed or refused? (CT, X-rays, U/S, labs)? Why? @ -None What meds were considered but not given or refused? Why? @ -None Did you discuss the management of the patient with other professionals (professionals i.e. [facility]INT Nails, OCCUPATIONAL THERAPIST, lab, RT, psych nurse, bilingual social worker, producer arborist manager, teacher, surveillance officer, nurse case manager)? Give summary @ -Discussed with radiologist concern for vasogenic edema in the left frontal lobe and concern for dens fracture Was smoking cessation discussed for >3mins.? @ -No Was critical care preformed (if so, how long)? @ -Yes, 35 minutes Were there social determinants of health that impacted care today? How? (Homelessness, low income, unemployed, alcoholism, drug addiction, transportation, low edu. Level, literacy, decrease access to med. care, fpc, r ehab)? @ -No Was there de-escalation of care discussed even if they declined (Discuss DNR or withdrawal of care, Hospice)? DNR status @ -Yes, initially said the patient was full code but would like to make him DNR What co-morbidities impacted this encounter? (DM, HTN, Smoking, COPD, CAD, Canc er, CVA, ARF, Chemo, Hep., AIDS, mental health diagnosis, sleep apnea, morbid obesity)? @ -Dementia Was patient admitted / discharged? Hospital course, mention meds given and route, prescriptions, significant lab abnormalities, going to OR and other pertinent info. @ -Transfer to outside facility The patient was seen and evaluated patient is a ground-level fall does not meet criteria for trauma activation. Imaging was obtained and is concerning for vasogenic edema of the left frontal lobe as well as a C2 dens fracture. Patient was in a hard collar and hard collar was maintained. Patient's family at bedside was updated on findings they have discussed the patient being no code in the past and do not think he is healthy enough for surgery however would like evaluation by neurosurgery. Patient care was discussed with trauma physician Dr. Prem Wilson who accepts the transfer. At the time of transfer patient was at his baseline mentation, very hard of hearing alert and oriented only to self, moving upper and lower extremities following commands Undiagnosed new problem with uncertain prognosis? @ -Yes, unstable cervical spine injury Drug Therapy requiring intensive monitoring for toxicity (Heparin, Nitro, Insulin, Cardizem)? @ -No Were any procedures done? @ -No Diagnosis/symptom? @ -Fall at residential Acute, or Chronic, or Acute on Chronic? @ -Acute Uncomplicated (without systemic symptoms) or Complicated (systemic symptoms)? @ -Complicated Side effects of treatment? @ -No Exacerbation, Progression, or Severe Exacerbation? @ -No Poses a threat to life or bodily function? How? (Chest pain, [place], [place], pneumonia, PE, COPD, DKA, ARF, appy, cholecystitis, CVA, Diverticulitis, Homicidal, Suicidal, threat to staff... and all critical care pts) @ -Yes Diagnosis/symptom? @ -Vasogenic edema Acute, or Chronic, or Acute on Chronic? @ -Likely acute Uncomplicated (without systemic symptoms) or Complicated (systemic symptoms)? @ -Default Side effects of treatment? @ -None Exacerbation, Progression, or Severe Exacerbation] @ -No Poses a threat to life or bodily function? @ -Yes Diagnosis/symptom? @ -Fracture of Dens type 2 Acute, or Chronic, or Acute on Chronic? @ -Acute Uncomplicated (without systemic symptoms) or Complicated (systemic symptoms)? @ Complicated Side effects of treatment? @ -None Exacerbation, Progression, or Severe Exacerbation] @ -No Poses a threat to life or bodily function? @ -Yes, is an unstable cervical spine fracture that can result in paralysis - Lab Data Result diagrams: 02/28/24 18:10 02/28/24 18:10 Lab Results 02/28/24 02/28/24 02/28/24 Range/Units 18:10 18:10 18:10 WBC 16.0 H (3.8-10.6) k/uL RBC 4.28 L (4.30-5.90) m/uL Hgb 13.4 (13.0-17.5) gm/dL Hct 41.6 (39.0-53.0) % MCV 97.3 (80.0-100.0) fL MCH 31.3 (25.0-35.0) pg MCHC 32.1 (31.0-37.0) g/dL RDW 13.3 (11.5-15.5) % Plt Count 279 (150-450) k/uL MPV 8.4 Neutrophils % 88 % Lymphocytes % 5 % Monocytes % 4 % Eosinophils % 2 % Basophils % 0 % Neutrophils # 14.0 H (1.3-7.7) k/uL Lymphocytes # 0.8 L (1.0-4.8) k/uL Monocytes # 0.6 (0-1.0) k/uL Eosinophils # 0.3 (0-0.7) k/uL Basophils # 0.1 (0-0.2) k/uL PT 10.1 (10.0-12.5) sec INR 0.9 (<1.2) APTT 24.4 (22.0-30.0) sec Sodium 138 (137-145) mmol/L Potassium 4.6 (3.5-5.1) mmol/L Chloride 105 (98-107) mmol/L Carbon Dioxide 27 (22-30) mmol/L Anion Gap 6 mmol/L BUN 42 H (9-20) mg/dL Creatinine 1.87 H (0.66-1.25) mg/dL Est GFR (CKD-EPI)AfAm 37 (>60 ml/min/1.73 sqM) Est GFR (CKD-EPI)NonAf 32 (>60 ml/min/1.73 sqM) Glucose 210 H (74-99) mg/dL Calcium 9.0 (8.4-10.2) mg/dL Total Bilirubin 0.4 (0.2-1.3) mg/dL AST 20 (17-59) U/L ALT 38 (4-49) U/L Alkaline Phosphatase 123 (38-126) U/L Troponin I (0.000-0.034) ng/mL Total Protein 6.4 (6.3-8.2) g/dL Albumin 3.7 (3.5-5.0) g/dL 02/28/24 Range/Units 18:10 WBC (3.8-10.6) k/uL RBC (4.30-5.90) m/uL Hgb (13.0-17.5) gm/dL Hct (39.0-53.0) % MCV (80.0-100.0) fL MCH (25.0-35.0) pg MCHC (31.0-37.0) g/dL RDW (11.5-15.5) % Plt Count (150-450) k/uL MPV Neutrophils % % Lymphocytes % % Monocytes % % Eosinophils % % Basophils % % Neutrophils # (1.3-7.7) k/uL Lymphocytes # (1.0-4.8) k/uL Monocytes # (0-1.0) k/uL Eosinophils # (0-0.7) k/uL Basophils # (0-0.2) k/uL PT (10.0-12.5) sec INR (<1.2) APTT (22.0-30.0) sec Sodium (137-145) mmol/L Potassium (3.5-5.1) mmol/L Chloride (98-107) mmol/L Carbon Dioxide (22-30) mmol/L Anion Gap mmol/L BUN (9-20) mg/dL Creatinine (0.66-1.25) mg/dL Est GFR (CKD-EPI)AfAm (>60 ml/min/1.73 sqM) Est GFR (CKD-EPI)NonAf (>60 ml/min/1.73 sqM) Glucose (74-99) mg/dL Calcium (8.4-10.2) mg/dL Total Bilirubin (0.2-1.3) mg/dL AST (17-59) U/L ALT (4-49) U/L Alkaline Phosphatase (38-126) U/L Troponin I <0.012 (0.000-0.034) ng/mL Total Protein (6.3-8.2) g/dL Albumin (3.5-5.0) g/dL Critical Care Time Critical Care Time: Yes Total Critical Care Time: 35 Disposition Clinical Impression: Closed dens fracture Disposition: OTHER INSTITUTION NOT DEFINED Is patient prescribed a controlled substance at d/c from ED?: No Referrals: Guille Ruggiero DO [Primary Care Provider] - 1-2 days - Out of Hospital Transfer - Req. Specs Out of Hospital Transfer - Requested Specifics: [facility]
[2024-02-28] MEDS: BACITRACIN OINT 1 EACH PACKET TOPICAL ONE (17:28)
--- NOTE | 2024-02-28 17:51 | CT ---
EXAMINATION TYPE: CT brain cspine wo con DATE OF EXAM: 02/28/2024 HISTORY: Fall. Laceration to left forehead. TECHNIQUE: CT scan of the head and cervical spine are performed without contrast. Total DLP: 1457.5 mGycm. Automated Exposure Control for Dose Reduction was Utilized. COMPARISON: CT Head 06/10/2014. No prior cervical spine studies. FINDINGS: CT HEAD: Prominent soft tissue tissue swelling is present anteriorly, consistent with subcutaneous he matoma centered left of midline, but the underlying frontal bone and frontal sinus are negative. Ther e is no skull fracture or intracranial hemorrhage. There is prominent vasogenic edema throughout the left frontal lobe, and further characterization wit h MRI without and with contrast is recommended to determine its etiology. Extra-axial compartment is unremarkable. Orbits are intact. Paranasal sinuses, middle ear cavities, and and mastoid sinus air are clear. CT CERVICAL SPINE: There is a linear lucency consistent with a transverse fracture at the base of the dens. There is accentuated lordosis and multilevel advanced cervical spondylosis changes at all leve ls. Results discussed with the ordering physician just now. IMPRESSION: CT Cervical Spine: Type II dens fracture. CT Head: Prominent vasogenic edema throughout the left frontal lobe as discussed.
[2024-02-28 18:26] LABS: Basophils # (A) 0.1 k/uL (0-0.2); Basophils % (A) 0 %; Eosinophils # (A) 0.3 k/uL (0-0.7); Eosinophils % (A) 2 %; HCT 41.6 % (39.0-53.0); HGB 13.4 gm/dL (13.0-17.5); Lymphocytes # (A) 0.8 k/uL (1.0-4.8); Lymphocytes % (A) 5 %; MCH 31.3 pg (25.0-35.0); MCHC 32.1 g/dL (31.0-37.0); MCV 97.3 fL (80.0-100.0); Mean Platelet Volume 8.4; Monocytes # (A) 0.6 k/uL (0-1.0); Monocytes % (A) 4 %; Neutrophils % (A) 88 %; Platelet Count 279 k/uL (150-450); RBC 4.28 m/uL (4.30-5.90); RDW 13.3 % (11.5-15.5)
[2024-02-28 18:34] LABS: INR 0.9 (<1.2); Partial Thromboplastin Time 24.4 sec (22.0-30.0); Prothrombin Time 10.1 sec (10.0-12.5)
[2024-02-28 18:35] LABS: Potassium 4.6 mmol/L (3.5-5.1)
[2024-02-28 18:36] LABS: ALT 38 U/L (4-49); AST 20 U/L (17-59); African American GFR (CKD) 37 (>60 ml/min/1.73 sqM); Albumin 3.7 g/dL (3.5-5.0); Alkaline Phosphatase 123 U/L (38-126); Anion Gap 6 mmol/L; Blood Urea Nitrogen 42 mg/dL (9-20); Carbon Dioxide 27 mmol/L (22-30); Chloride 105 mmol/L (98-107); Glucose 210 mg/dL (74-99); Non-African American GFR(CKD) 32 (>60 ml/min/1.73 sqM); Sodium 138 mmol/L (137-145); Total Bilirubin 0.4 mg/dL (0.2-1.3); Total Protein 6.4 g/dL (6.3-8.2)
[2024-02-28 19:34] VITALS: BP 164/78; PULSE 78; RESP 16; TEMP 97.5
== END 2024-02-28 18:55 | disposition other institution (70) ==
LOC: EC 16:45
DX: S12.120A Other displaced dens fracture, initial encounter for closed fracture (principal); Z91.040 Latex allergy status; Z88.6 Allergy status to analgesic agent; Z87.891 Personal history of nicotine dependence; W18.09XA Striking against other object with subsequent fall, initial encounter
CPT/HCPCS: 36415; 70450; 72125; 80053; 84484; 85025; 85610; 85730; 99291